=== PATIENT | male | born 1955 | race Two or more races ===

== ENCOUNTER 2017-10-30 14:25 | Day surgery (SDC) | payer OTHER ==
[2017-10-30] MEDS ORDERED: PROPOFOL 40 ML (15:25)
[2017-10-30] MEDS ORDERED: LIDOCAINE 100 MG SYRINGE (15:25)
== END 2017-10-30 18:30 | disposition home or self-care (01) ==
LOC: GIL 14:25
DX: Z12.11 Encounter for screening for malignant neoplasm of colon (principal); K64.8 Other hemorrhoids; I10 Essential (primary) hypertension; Z86.73 Personal history of transient ischemic attack (TIA), and cerebral infarction without residual deficits
CPT/HCPCS: 45378